=== PATIENT | male | born 1965 | race Caucasian/White ===

== ENCOUNTER 2018-05-27 16:08 | Observation (INO) ==
[2018-05-27] MEDS ORDERED: Acetaminophen 325 MG Tablet PO PRN (22:11)
[2018-05-27] MEDS ORDERED: Bisacodyl 10 MG Supp RECTAL PRN (22:11)
[2018-05-28] MEDS: Sod Chloride 0.9% Inj 1,000 ML IV.CONT SCH ×2 (01:42→14:09)
[2018-05-28] MEDS ORDERED: Gadobutrol PF 7.5 MMOL/7.5 ML Vial (for RAD) IV.SIG ONE (09:52)
--- NOTE | 2018-05-28 10:12 | MR ---
EXAM DATE: 05/28/2018 10:07 AM EDT AGE/SEX: 52 years / Male INDICATIONS: Altered mental status. Memory loss for one day. CLINICAL DATA: This is the patient's initial encounter. Patient reports that signs and symptoms have been present for 1 day and indicates a pain score of 0/10. MEDICAL/SURGICAL HISTORY: Hypertension. None. COMPARISON: DL, CT HEAD W/O CONTRAST, 05/27/2018. . TECHNIQUE: Multiplanar, multisequence examination of the brain was performed without and with 7.5 ml Gadavist (gadobutrol) contrast as a single exam dose. FINDINGS: Cerebrum: The ventricles are normal for age. No evidence of midline shift, mass lesion, hemorrhage or acute infarction. No extraaxial fluid collections are seen. The pituitary gland and suprasellar cistern are normal in configuration. White Matter: No significant signal abnormalities are seen in the white matter. Posterior Fossa: The cerebellum and brainstem are intact. The 4th ventricle is midline. The cerebel lopontine angle is unremarkable. The cerebellar tonsils are normal in position. Diffusion Imaging: No focal areas of restricted diffusion are seen. No evidence of acute infarction . Extracranial: The visualized portions of the orbits are unremarkable. Mild chronic sinus disease in the base the right maxillary sinus. Post Contrast: No abnormal areas of parenchymal or dural enhancement. No evidence of blood-brain ba rrier breakdown. No enhancing mass occupying lesions. CONCLUSION: 1. Unremarkable MRI of the brain. 2. Mild chronic sinus disease in the right maxillary sinus. Electronically signed by: Eh Wyman MD 05/28/2018 10:10 AM EDT
[2018-05-28 10:24] LABS: Potassium 4.1 meq/L (3.5-5.1)
[2018-05-28 10:26] LABS: Calcium 8.4 mg/dL (8.5-10.1)
[2018-05-28 10:27] LABS: Carbon Dioxide 28.1 meq/L (21.0-32.0); Magnesium 2.4 mg/dL (1.5-2.5)
[2018-05-28 10:30] LABS: Phosphorus 2.6 mg/dL (2.5-4.9)
--- NOTE | 2018-05-28 12:02 | P.HP ---
History of Present Illness Primary Care Physician: Flavio Carnes Chief Complaint: Altered mental status History of Present Illness: This is a 52-year-old male with history of hypertension, hyperlipidemia and vitamin D deficiency. Family history of CVA. Patient was brought in by his because of altered mental status. Apparently he is not able to recall events for the past 2 days. He denies fever, chills, neck pain, UTI symptoms, abdominal pain, diarrhea and skin rash. Not on any new medications. Patient snores but denies noticing apnea. He denies daytime drowsiness. Workup so far unremarkable except for slightly elevated ammonia level denies liver disease. At this time, he is awake and oriented. Denies any complaints. Review of Systems All other systems reviewed negative except as stated in HPI [facility] - History History Provided By: Patient, Significant Other - Medical History Medical History: Medical History (Last Reviewed 05/28/18 @ 07:40 by Eric Cooley) High cholesterol - Surgical History Surgical History: Surgical History (Last Reviewed 05/28/18 @ 07:40 by Eric Cooley) No history of previous surgery - Family History Family History: Family History (Last Updated 05/28/18 @ 01:55 by Beverly Mendez RN) Father Ischemic stroke - Tobacco History Second Hand Smoke Exposure: No Smoking Status: Never smoker - Alcohol History How Often Do You Have a Drink Containing Alcohol: Never - Substance Use History Substance History: No History of Abuse - Travel History Recent Travel in the [place] Within the Last 8 Weeks: No Recent Travel Out of the Country Within the Last 8 Weeks: No Medications and Allergies Active Medications: Active Medications Acetaminophen (Tylenol) 650 mg PO Q4H PRN PRN Reason: Temp > 100.4 Al Hydroxide/Mg Hydroxide (Milk Of Magnesia Liq) 30 ml PO Q12H PRN PRN Reason: Mild Constipation Bisacodyl (Dulcolax Supp) 10 mg RECTAL DAILY PRN PRN Reason: SEVERE CONSITIPATION Sodium Chloride (Ns Inj) 1,000 mls @ 100 mls/hr IV.CONT .Q10H [facility] Last Admin: 05/28/18 01:42 Dose: 100 mls/hr Lactulose (Lactulose Liq) 30 ml PO DAILY [facility] Last Admin: 05/28/18 08:24 Dose: 30 ml Lactulose (Lactulose Liq) 30 ml PO DAILY PRN PRN Reason: SEVERE CONSITIPATION Ondansetron HCl (Zofran Inj) 4 mg IV.PUSH Q6H PRN PRN Reason: NAUSEA OR VOMITING Sennosides (Senokot) 17.2 mg PO Q12H PRN PRN Reason: Moderate Constipation Allergies Allergy/AdvReac Type Severity Reaction Status Date / Time No Known Allergies Allergy Unverified 05/27/18 16:19 Home Medications Medication Instructions Recorded Confirmed Type atorvastatin [Lipitor] 40 mg PO DAILY 05/27/18 05/28/18 History Vitamin D3 1 PO DAILY 05/28/18 History amlodipine [Norvasc] 2.5 mg PO DAILY 05/28/18 05/28/18 History Exam Vital signs: Vital Signs 05/28/18 01:30 05/28/18 01:56 05/28/18 04:00 Temperature 97.7 F 96.6 F L Pulse Rate 68 63 77 Respiratory Rate 20 20 Blood Pressure 137/84 130/73 Pulse Oximetry 97 98 05/28/18 07:44 05/28/18 08:00 05/28/18 08:19 Temperature 97.4 F L 97.4 F L Pulse Rate 72 72 Respiratory Rate 20 20 Blood Pressure 124/72 124/68 Pulse Oximetry 95 95 97 Intake & Output 05/27/18 05/28/18 05/28/18 18:59 06:59 18:59 Intake Total 360 / 360 Balance 360 / 360 Weight 76.3 kg Intake: Oral 360 / 360 Other: # Voids 0 Date of Last Bowel Movement 05/27/18 Weight On Admission 76.3 kg Narrative: GENERAL: Well-developed, well-nourished in no distress SKIN: Warm and dry. HEAD: Atraumatic. Normocephalic. EYES: Pupils equal and round. No scleral icterus. No injection or drainage. ENT: No nasal bleeding or discharge. Mucous membranes pink and moist. NECK: Trachea midline. No JVD. CARDIOVASCULAR: Regular rate and rhythm. RESPIRATORY: No accessory muscle use. Clear to auscultation. Breath sounds equal bilaterally. GASTROINTESTINAL: Abdomen soft, non-tender, nondistended. MUSCULOSKELETAL: Extremities without clubbing, cyanosis, or edema. No obvious deformities. NEUROLOGICAL: Awake and alert. No obvious cranial nerve deficits. Motor grossly within normal limits. Five out of 5 muscle strength in the arms and legs. Normal speech. PSYCHIATRIC: Appropriate mood and affect; insight and judgment normal. Results - Labs CBC & Chem 7: 05/28/18 08:40 Labs: Laboratory Results - last 24 hr 05/28/18 08:40 Sodium 141 Potassium 4.1 Chloride 105 Carbon Dioxide 28.1 Anion Gap 8 BUN 14 Creatinine 1.30 Estimated GFR 58 L Random Glucose 109 H Calcium 8.4 L Phosphorus 2.6 Magnesium 2.4 - Imaging Impressions Head MRI 05/28/18 00:00 CONCLUSION: 1. Unremarkable MRI of the brain. 2. Mild chronic sinus disease in the right maxillary sinus. Caprini VTE Risk Assessment Caprini VTE Risk Assessment: No/Low Risk (score <= 1) Caprini Risk Assessment Model: Point Value = 1 Point Value = 2 Point Value = 3 Point Value = 5 Age 41-60 Minor surgery BMI > 25 kg/m2 Swollen legs Varicose veins or History of unexplained or recurrent spontaneous Oral contraceptives or hormone replacement Sepsis (< 1 month) Serious lung disease, including pneumonia (< 1 month) Abnormal pulmonary function Acute myocardial infarction Congestive heart failure (< 1 month) History of inflammatory bowel disease Medical patient at bed rest Age 61-74 Arthroscopic surgery Major open surgery (> 45 min) Laparoscopic surgery (> 45 min) Malignancy Confined to bed (> 72 hours) Immobilizing plaster cast Central venous access Age >= 75 History of VTE Family history of VTE Factor V Leiden Prothrombin [id number] Lupus anticoagulant Anticardiolipin antibodies Elevated serum homocysteine Heparin-induced thrombocytopenia Other congenital or acquired thrombophilia Stroke (< 1 month) Elective arthroplasty Hip, pelvis, or leg fracture Acute spinal cord injury (< 1 month) Prophylaxis Regimen: Total Risk Factor Score Risk Level Prophylaxis Regimen 0-1 Low Early ambulation 2 Moderate Order ONE of the following: *Sequential Compression Device (SCD) *Heparin 5000 units SQ BID 3-4 Higher Order ONE of the following medications: *Heparin 5000 units SQ TID *Enoxaparin/Lovenox 40 mg SQ daily (WT < 150 kg, CrCl > 30 mL/min) *Enoxaparin/Lovenox 30 mg SQ daily (WT < 150 kg, CrCl > 10-29 mL/min) *Enoxaparin/Lovenox 30 mg SQ BID (WT < 150 kg, CrCl > 30 mL/min) AND/OR *Sequential Compression Device (SCD) 5 or more Highest Order ONE of the following medications: *Heparin 5000 units SQ TID (Preferred with Epidurals) *Enoxaparin/Lovenox 40 mg SQ daily (WT < 150 kg, CrCl > 30 mL/min) *Enoxaparin/Lovenox 30 mg SQ daily (WT < 150 kg, CrCl > 10-29 mL/min) *Enoxaparin/Lovenox 30 mg SQ BID (WT < 150 kg, CrCl > 30 mL/min) AND *Sequential Compression Device (SCD) Assessment and Plan - Plan This is a 52-year-old male with history of hypertension, hyperlipidemia and vitamin D deficiency. He presented to the emergency department with altered mental status unable to recall events for the past 48 hours. Encephalopathy which is currently resolved. Etiology not clear but has slightly elevated ammonia level. EEG is pending as well as neurology consult. Elevated ammonia level. LFTs within normal limits. Drinks alcohol occasionally. Obtain ultrasound of the liver. Continue lactulose Mild hyperglycemia. Outpatient follow-up DVT prophylaxis with SCD Discharge Planning: Discharge patient to home pending EEG and neurology evaluation Condition on discharge: Improved Regular Diet as tolerated Ad Tiesha activity no driving Rx written: Lactulose Follow-up with primary care physician and neurology
[2018-05-28] MEDS: amLODIPine 5 MG Tablet PO SCH (14:07)
--- NOTE | 2018-05-29 | MG ---
cc: Rick Spivey MD ELECTROENCEPHALOGRAM RECORD NUMBER: [id number] Well-formed alpha activity 8-10 Hz, 20-50 microvolts, low-amplitude beta in the frontal channels. Good anterior to posterior gradient. Good driving with photic stimulation. No lateralizing features. Single lead EKG shows sinus rhythm, possible bundle branch block. INTERPRETATION: Normal awake electroencephalogram. Clinical correlation. Rick Spivey MD MG/sv , 09:57 PM , 10:02 PM
[2018-05-29] MEDS: Sod Chloride 0.9% Inj 1,000 ML IV.CONT SCH ×2 (00:09→06:32)
--- NOTE | 2018-05-29 04:58 | MB ---
cc: Timmy Graves MD, PhD DATE: 05/28/2018 REASON FOR CONSULTATION: Mental status change. HISTORY OF PRESENT ILLNESS: This is a very pleasant 52-year-old man who was previously healthy. His brought him to the hospital after yesterday he had an episode during the day of amnesia. This lasted pretty much the entire day. He had no recall of events during the entire day or even the day before. He would often repeat things, was very confused and disoriented. His symptoms have since subsided. They came on suddenly and resolved suddenly. No headache. No focal deficits. PAST MEDICAL HISTORY: Otherwise unremarkable except for hypercholesterolemia. MEDICINES AT HOME: NONE. SOCIAL HISTORY: He denies alcohol use. PHYSICAL EXAMINATION: VITAL SIGNS: Blood pressure 138/81, pulse 72, respirations 16, temperature 97 degrees. NEUROLOGIC: Higher cortical functions at this time are normal. Cranial nerves intact. Motor exam: No focal deficits. Brain MRI is within normal limits. EEG is pending. LABORATORY DATA: The white count is 9900, hemoglobin 16.6, hematocrit 48%, platelet count 274,000. Sodium 141, potassium 4.1, chloride 105, CO2 is 28, BUN is 14, creatinine 1.3, GFR is 58. AST 16, ALT is 38, total bilirubin 0.9, ammonia 34, alkaline phosphatase 116. IMPRESSION: Transient global amnesia. Differential would include transient ischemic attack or focal seizure. RECOMMENDATIONS: The patient will review the EEG when available. I also recommend echocardiogram and carotid ultrasound. Start aspirin 81 mg daily. Consider KIERSTEN if the echo is normal. Also, check labs to rule out hypercoagulable state. Timmy Graves MD, PhD ADAN/rm , 10:37 PM , 10:42 PM
--- NOTE | 2018-05-29 09:15 | US ---
EXAM DATE: 05/29/2018 9:09 AM EDT AGE/SEX: 52 years / Male INDICATIONS: Transient ischemic attack. CLINICAL DATA: This is the patient's initial encounter. Patient reports that signs and symptoms have been present for 1 day and indicates a pain score of 0/10. MEDICAL/SURGICAL HISTORY: Hypertension. Hyperlipidemia. Vitamin D deficiency. None. wnl COMPARISON: No prior exams available for comparison. VELOCITY PARAMETERS: ICA/CCA Ratio: Right 0.9 , Left 0.9 ICA: Right 72 cm/sec, Left 74 cm/sec CCA: Right 77 cm/sec, Left 80 cm/sec ECA: Right 81 cm/sec, Left 68 cm/sec Vertebral: Right 36 cm/sec antegrade, Left 44 cm/sec antegrade FINDINGS: Right Carotid: No significant plaque is visualized.The waveforms are within normal limits. Left Carotid: No significant plaque is visualized. The waveforms are within normal limits. Other: None. CONCLUSION: Negative for hemodynamically significant stenosis. Electronically signed by: Velasquez Garcia MD 05/29/2018 9:14 AM EDT
--- NOTE | 2018-05-29 09:17 | US ---
EXAM DATE: 05/29/2018 9:07 AM EDT AGE/SEX: 52 years / Male INDICATIONS: Mass. CLINICAL DATA: This is the patient's initial encounter. Patient reports that signs and symptoms have been present for 1 day and indicates a pain score of 0/10. MEDICAL/SURGICAL HISTORY: Hypertension. Hyperlipidemia. Vitamin D deficiency. None. COMPARISON: No prior exams available for comparison. MEASUREMENTS: Liver:__ 16.6 cm. Common Bile Duct:__ 4mm. Right Kidney:__ 9.8 x 5.0 x 4.1 cm. FINDINGS: Liver: 5 mm cyst left lobe of the liver. No duct dilatation. Portal Vein: Hepatopedal flow seen in portal vein. Common Duct: No intraluminal mass or stone visualized. Gallbladder: Demonstrates no wall thickening or pericholecystic fluid. No stones visualized. Pancreas: The visualized portions are within normal limits Right Kidney: Normal echotexture and cortical thickness. No mass or hydronephrosis. Other: No ascites CONCLUSION: 1. 5 mm cyst left lobe otherwise negative. Electronically signed by: Velasquez Garcia MD 05/29/2018 9:16 AM EDT
[2018-05-29] MEDS: amLODIPine 5 MG Tablet PO SCH (09:47)
[2018-05-29 10:38] LABS: Chol/HDL Ratio 3.99 Ratio; HDL Cholesterol 43.8 mg/dL (40.0-60.0)
--- NOTE | 2018-05-29 11:06 | ECHRPT ---
Indication: CVA/TIA CONCLUSIONS The left ventricular systolic function is normal with an estimated ejection fraction in the range of 60-65%. Normal left ventricular size. Wall thickness is upper normal. No regional wall motion abnormalities are present. Mild mitral valve regurgitation. There is trace tricuspid valve regurgitation. Normal estimated pulmonary pressures. Minimal aortic leaflet sclerosis. BP: / HR: Rhythm: Atrial fibrillation Technical Quality:Excellent FINDINGS LEFT VENTRICLE The left ventricular systolic function is normal with an estimated ejection fraction in the range of 60-65%. Normal left ventricular size. Wall thickness is normal. No regional wall motion abnormalities are present. RIGHT VENTRICLE Normal right ventricular size and systolic function. LEFT ATRIUM The left atrial size is normal. RIGHT ATRIUM The right atrial size is normal. ATRIAL SEPTUM Normal atrial septal thickness without atrial level shunting by limited color doppler interrogation. AORTA The aortic root and proximal ascending aorta are normal in size on limited imaging. MITRAL VALVE Structurally normal mitral valve. Mild mitral valve regurgitation. AORTIC VALVE Trileaflet aortic valve. No aortic valve stenosis or regurgitation. Minimal aortic leaflet sclerosi s. TRICUSPID VALVE Structurally normal tricuspid valve. There is trace tricuspid valve regurgitation. Normal estimated pulmonary pressures. PULMONARY VALVE The pulmonary valve is not well visualized. VESSELS The inferior vena cava is normal in size. PERICARDIUM No pericardial effusion. Rene Goldman MD (Electronically Signed) Final Date:29 May 2018 11:05
--- NOTE | 2018-05-29 13:31 | P.PN ---
Subjective Interval history: Follow-up TIA. Patient has no new complaints. Agrees to proceed with KIERSTEN. Educated with respect to risk factor modifications. Physical Exam Vital signs: Vital Signs 05/28/18 16:00 05/28/18 19:30 05/28/18 20:00 Temperature 98.1 F 97.4 F L Pulse Rate 72 72 Respiratory Rate 18 16 Blood Pressure 132/74 138/81 Pulse Oximetry 97 97 98 05/28/18 20:45 05/29/18 00:00 05/29/18 04:00 Temperature 97.4 F L 98.4 F Pulse Rate 77 67 89 Respiratory Rate 16 16 Blood Pressure 142/82 H 138/80 Pulse Oximetry 98 98 05/29/18 08:00 05/29/18 09:18 Temperature 97.4 F L Pulse Rate 65 Respiratory Rate 18 Blood Pressure 118/68 Pulse Oximetry 97 98 Intake & Output 05/28/18 05/29/18 05/29/18 18:59 06:59 18:59 Intake Total 1300 / 1300 1000 / 1000 1000 / 1000 Balance 1300 / 1300 1000 / 1000 1000 / 1000 Weight 77.1 kg Intake: IV 1000 / 1000 1000 / 1000 1000 / 1000 NS Inj 1,000 ML @ 100 mls/hr IV 1000 / 1000 1000 / 1000 1000 / 1000 .CONT .Q10H [facility] Rx#:[id number] Oral 300 / 300 Other: # Voids 2 3 Date of Last Bowel Movement 05/27/18 Narrative: GENERAL: Well-developed, well-nourished in no distress SKIN: Warm and dry. CARDIOVASCULAR: Regular rate and rhythm. RESPIRATORY: No accessory muscle use. Clear to auscultation. Breath sounds equal bilaterally. GASTROINTESTINAL: Abdomen soft, non-tender, nondistended. MUSCULOSKELETAL: Extremities without clubbing, cyanosis, or edema. No obvious deformities. NEUROLOGICAL: Awake and alert. No obvious cranial nerve deficits. Motor grossly within normal limits. Five out of 5 muscle strength in the arms and legs. Normal speech. Results - Labs CBC & Chem 7: 05/28/18 08:40 Laboratory Results - last 24 hr 05/29/18 05:50 Triglycerides 124 Cholesterol 175 LDL Cholesterol, Calc 106 H HDL Cholesterol 43.8 Cholesterol/HDL Ratio 3.99 - Imaging Impressions Carotid Doppler Study 05/29/18 00:00 CONCLUSION: Negative for hemodynamically significant stenosis. Liver Ultrasound 05/29/18 00:00 CONCLUSION: 1. 5 mm cyst left lobe otherwise negative. Assessment and Plan - Plan This is a 52-year-old male with history of hypertension, hyperlipidemia and vitamin D deficiency. He presented to the emergency department with altered mental status unable to recall events for the past 48 hours. Likely TIA. Carotid ultrasound, echocardiogram and MRI unremarkable. KIERSTEN negative for seizure. LDL 106 patient states he does increase his Lipitor to 40 g daily. A1c is pending. Patient agrees to undergo KIERSTEN as recommended by neurology. Follow-up hypercoagulable panel. Patient aware not to drive at this time. Outpatient follow-up with for cognitive rehab. Elevated ammonia level. LFTs within normal limits. Drinks alcohol occasionally. Ultrasound the liver shows cyst. Continue lactulose Mild hyperglycemia. Outpatient follow-up DVT prophylaxis with SCD Discharge Planning: Discharge patient to home pending EEG and neurology evaluation Condition on discharge: Improved Regular Diet as tolerated Ad Tiesha activity no driving Rx written: Lactulose Follow-up with primary care physician and neurology
[2018-05-29 17:23] LABS: Hemoglobin A1c 5.1 % (4.3-6.0)
--- NOTE | 2018-05-29 20:30 | P.PNNEU ---
Subjective Active Medications: Active Medications Acetaminophen (Tylenol) 650 mg PO Q4H PRN PRN Reason: Temp > 100.4 Al Hydroxide/Mg Hydroxide (Milk Of Magnesia Liq) 30 ml PO Q12H PRN PRN Reason: Mild Constipation Amlodipine Besylate (Norvasc) 2.5 mg PO DAILY [facility] Last Admin: 05/29/18 09:47 Dose: 2.5 mg Aspirin (Aspirin Chew) 81 mg PO DAILY [facility] Last Admin: 05/29/18 09:47 Dose: 81 mg Atorvastatin Calcium (Lipitor) 40 mg PO DAILY [facility] Last Admin: 05/29/18 15:53 Dose: 40 mg Bisacodyl (Dulcolax Supp) 10 mg RECTAL DAILY PRN PRN Reason: SEVERE CONSITIPATION Lactulose (Lactulose Liq) 30 ml PO DAILY [facility] Last Admin: 05/29/18 09:47 Dose: 30 ml Lactulose (Lactulose Liq) 30 ml PO DAILY PRN PRN Reason: SEVERE CONSITIPATION Miscellaneous (Pill Splitter) 1 each OTHER UNSCH PRN PRN Reason: SEE LABEL COMMENTS Ondansetron HCl (Zofran Inj) 4 mg IV.PUSH Q6H PRN PRN Reason: NAUSEA OR VOMITING Sennosides (Senokot) 17.2 mg PO Q12H PRN PRN Reason: Moderate Constipation Allergies/Adverse Reactions: Allergies Allergy/AdvReac Type Severity Reaction Status Date / Time No Known Allergies Allergy Unverified 05/27/18 16:19 Physical Exam Vital signs: Vital Signs 05/28/18 20:45 05/29/18 00:00 05/29/18 04:00 Temperature 97.4 F L 98.4 F Pulse Rate 77 67 89 Respiratory Rate 16 16 Blood Pressure 142/82 H 138/80 Pulse Oximetry 98 98 05/29/18 08:00 05/29/18 09:18 05/29/18 12:00 Temperature 97.4 F L 97.0 F L Pulse Rate 65 75 Respiratory Rate 18 18 Blood Pressure 118/68 121/72 Pulse Oximetry 97 98 99 05/29/18 15:48 05/29/18 20:05 Temperature 96.7 F L Pulse Rate 73 Respiratory Rate 18 Blood Pressure 137/79 Pulse Oximetry 99 98 Intake & Output 05/29/18 05/29/18 05/30/18 06:59 18:59 06:59 Intake Total 1000 / 1000 1000 / 1000 Balance 1000 / 1000 1000 / 1000 Weight 77.1 kg Intake: IV 1000 / 1000 1000 / 1000 NS Inj 1,000 ML @ 100 mls/hr IV 1000 / 1000 1000 / 1000 .CONT .Q10H [facility] Rx#:[id number] Other: # Voids 3 Date of Last Bowel Movement 05/27/18 Objective Radiology Results: carotid US normal ECHO normal EEG normal MRI brain normal Laboratory Results - last 24 hr 05/29/18 05/29/18 05:50 05:50 Hemoglobin A1c 5.1 Triglycerides 124 Cholesterol 175 LDL Cholesterol, Calc 106 H HDL Cholesterol 43.8 Cholesterol/HDL Ratio 3.99 Review/Management - Diagnosis (1) TIA (transient ischemic attack) Code(s): G45.9 - Transient cerebral ischemic attack, unspecified Status: Acute Current Visit: Yes - Review/Management Plan: episode of transient global amnesia--suspect TIA. Recommend KIERSTEN to r/o pfo
[2018-05-30 05:25] VITALS: RESP 16
[2018-05-30 08:22] VITALS: BP 120/73; PULSE 64; TEMP 96.4; O2SAT 97
--- NOTE | 2018-05-30 08:23 | MB ---
cc: Rene Goldman MD DATE: 05/28/2018 REASON FOR CONSULTATION: Transesophageal echocardiography. HISTORY OF PRESENT ILLNESS: The patient is a 52-year-old with a history of hypertension and hyperlipidemia, who was brought to the hospital due to altered mental status. The patient was unable to recall any other events for the previous 48 hours prior to presentation. He denies chest pain, shortness of breath, dizziness, syncope, near syncope, palpitations, pedal edema. The patient plays vigorous soccer at least twice a week. The patient also reports a stress test about 2 years ago, which was negative for ischemia. Echocardiogram here in the hospital is unremarkable. PAST MEDICAL HISTORY: 1. Hypertension. 2. Hyperlipidemia. PAST SURGICAL HISTORY: None. CARDIAC MEDICATIONS AT HOME: 1. Amlodipine 2.5 mg daily. 2. Atorvastatin 40 mg at bedtime. ALLERGIES: NO KNOWN DRUG ALLERGIES. FAMILY HISTORY: The patient states his father may started having cardiac issues in his 60s, possibly myocardial infarction, subsequently passing away from an ischemic stroke. SOCIAL HISTORY: The patient denies any history of alcohol or tobacco abuse. REVIEW OF SYSTEMS: As in history of present illness, otherwise negative or noncontributory. He also denies headache, unilateral weakness or numbness, abdominal pain, melena, dyspepsia, bright red blood per rectum. PHYSICAL EXAMINATION: VITAL SIGNS: Blood pressure 137/79 with a pulse of 73, respirations 18. GENERAL: He is a well-developed, well-nourished male, in no acute distress. NECK: Jugular venous pressure is normal. Carotid pulses are 2+ bilaterally and without bruits. CHEST: Reveals clear lungs george. CARDIAC: He has a regular rhythm and rate without S3, S4, or murmur. ABDOMEN: He has a soft, nontender abdomen. Bowel sounds are present. There is no definite hepatosplenomegaly. EXTREMITIES: Reveals no clubbing, cyanosis or edema. LABORATORY DATA: Includes potassium 4.1, BUN 14, creatinine 1.30. Triglycerides 124, total cholesterol 175, LDL 106, HDL 44. IMPRESSION: Possible episode of transient global amnesia or transient ischemic attack in this 52-year-old male with a history of hypertension, hyperlipidemia. I have been asked to see the patient for transesophageal echocardiography. Overall, I would agree with the need for this exam. The patient has no cardiovascular symptoms. The patient reports a cardiac evaluation in the past, which has been normal. Transthoracic echocardiography here in the hospital is unremarkable. RECOMMENDATIONS: Transesophageal echocardiography. As the test cannot be done until Mass[place] morning, he is cleared for discharge from my standpoint, and he can followup with his incising machine operator, Dr. Avina, to set this study up as an outpatient. MD DOMINGA Mendez/satya , 07:47 PM , 07:56 PM [id number]
[2018-05-30] MEDS: amLODIPine 5 MG Tablet PO SCH (08:47)
--- NOTE | 2018-05-30 12:37 | P.DS ---
Date of admission: 05/28/18 01:20 Primary care physician: Flavio Carnes Brief History from admission: This is a 52-year-old male with history of hypertension, hyperlipidemia and vitamin D deficiency. Family history of CVA. Patient was brought in by his because of altered mental status. Apparently he is not able to recall events for the past 2 days. He denies fever, chills, neck pain, UTI symptoms, abdominal pain, diarrhea and skin rash. Not on any new medications. Patient snores but denies noticing apnea. He denies daytime drowsiness. Workup so far unremarkable except for slightly elevated ammonia level denies liver disease. At this time, he is awake and oriented. Denies any complaints. DS: Medications - Discharge Medications Prescriptions: aspirin 81 mg PO DAILY #30 tab lactulose 30 ml PO DAILY #1000 ml DS: Summary Hospital Course: This is a 52-year-old male with history of hypertension, hyperlipidemia and vitamin D deficiency. He presented to the emergency department with altered mental status unable to recall events for the past 48 hours. Likely TIA. Carotid ultrasound, echocardiogram and MRI unremarkable. KIERSTEN negative for seizure. LDL 106 patient states he just increased his Lipitor to 40 g daily. A1c is 5.3. Patient agrees to undergo KIERSTEN as recommended by neurology but unable to arrange until Friday, he has been cleared by cardiology to follow-up with his own case folder for KIERSTEN patient agrees to be discharged fully aware of risks not completing KIERSTEN at this time. Follow-up hypercoagulable panel. Patient aware not to drive at this time or participate in any activities requiring concentration. Outpatient follow-up with for cognitive rehab. Elevated ammonia level. LFTs within normal limits. Drinks alcohol occasionally. Ultrasound the liver shows cyst. Continue lactulose DVT prophylaxis with SCD - Time Spent with Patient Total time spent providing and/or coordinating discharge services: Greater than 30 minutes - Quality: VTE Deep Vein Thrombosis/Pulmonary Embolism Present on Admission: No Exam Vital signs: Vital Signs 05/29/18 15:48 05/29/18 20:00 05/29/18 20:05 Temperature 96.7 F L 97.4 F L Pulse Rate 73 62 Respiratory Rate 18 16 Blood Pressure 137/79 131/85 Pulse Oximetry 99 96 98 05/30/18 00:00 05/30/18 04:00 05/30/18 08:00 Temperature 98.5 F 97.4 F L 96.4 F L Pulse Rate 90 70 64 Respiratory Rate 18 16 16 Blood Pressure 130/72 122/77 120/73 Pulse Oximetry 100 99 97 Intake & Output 05/29/18 05/30/18 05/30/18 18:59 06:59 18:59 Intake Total 1000 / 1000 Balance 1000 / 1000 Weight 77 kg Intake: IV 1000 / 1000 NS Inj 1,000 ML @ 100 mls/hr IV 1000 / 1000 .CONT .Q10H ERIC Rx#:[id number] Other: # Voids 3 Date of Last Bowel Movement 05/28/18 05/28/18 Narrative: GENERAL: Well-developed, well-nourished in no distress SKIN: Warm and dry. CARDIOVASCULAR: Regular rate and rhythm. RESPIRATORY: No accessory muscle use. Clear to auscultation. Breath sounds equal bilaterally. GASTROINTESTINAL: Abdomen soft, non-tender, nondistended. MUSCULOSKELETAL: Extremities without clubbing, cyanosis, or edema. No obvious deformities. NEUROLOGICAL: Awake and alert. No obvious cranial nerve deficits. Motor grossly within normal limits. Five out of 5 muscle strength in the arms and legs. Normal speech. Results Procedures completed during hospitalization: none Labs on day of discharge: Labs from last 24 hours 05/29/18 05:50 Hemoglobin A1c 5.1 - Impressions ITS Impressions Head MRI 05/28/18 00:00 CONCLUSION: 1. Unremarkable MRI of the brain. 2. Mild chronic sinus disease in the right maxillary sinus. Carotid Doppler Study 05/29/18 00:00 CONCLUSION: Negative for hemodynamically significant stenosis. Liver Ultrasound 05/29/18 00:00 CONCLUSION: 1. 5 mm cyst left lobe otherwise negative. Discharge Plan - Discharge Disposition Patient Disposition: Discharge Home - Discharge Condition Condition: Stable - Discharge Order Discharge Orders: Discharge Order (Routine); Ordered 05/30/18 Ordered By: Vijay Hyde Cardiology Clear for Discharge (Routine); Ordered 05/29/18 Ordered By: Rene Abdi - Physicians Team Primary Care Provider: Flavio Carnes Attending Provider: Vijay Hyde Other Providers: Timmy Graves MD, PhD ; Rene Abdi MD - Rxs /Orders / Referrals /Forms Prescriptions: New aspirin 81 mg Tablet,Chewable 81 mg PO DAILY Qty: 30 RF: 0 lactulose 20 gram/30 mL Solution 30 ml PO DAILY Qty: 1000 RF: 0 Continue amlodipine [Norvasc] 2.5 mg Tablet 2.5 mg PO DAILY atorvastatin [Lipitor] 40 mg Tablet 40 mg PO DAILY Vitamin D3 1000 mg tablet 1 PO DAILY Ambulatory Orders / Order Sets / DME: Basic Metabolic Panel (Routine) Timeframe: [id number] Location: Determined by Patient Ordered By: Vijay Hyde Referrals: [facility] [Outside] - 06/01/18 (Dr Avina for KIERSTEN) Flavio Carnes [Primary Care Provider] - See Instructions (1wk) Timmy Graves MD, PhD [Physician] - See Instructions (1wk) - Discharge Instructions Patient Printed Instructions: Altered Mental Status (GEN) Additional Instructions: FOLLOW-UP DR. ABDI OFFICE AN OUT PATIENT FOR KIERSTEN. - Post Discharge Care Plan Care Plan Goals: Your Health Problems: Goals to Promote Your Health: * To prevent worsening of your condition * To maintain your health at the optimal level Directions to Meet Your Goals: * Take your medications as prescribed * Follow your dietary instruction * Follow activity as directed * Keep your appointments as scheduled * Take your immunizations and boosters as scheduled * If your symptoms worsen call your PCP * If no PCP go to Urgent Care or Emergency Room Smoking is dangerous to your health. Avoid second hand smoke. You may reach the 24-hour crisis hotline for domestic abuse at .
[2018-05-31 23:52] LABS: Dil Russell Viper Venom Conf ( ND (NEGATIVE); Dil Russell Viper Venom Time M ND (CORRECTED); Lupus Anticoagulant PTT Screen 36 seconds (< OR = 40)
[2018-06-01 21:06] LABS: Factor V Leiden Mutation Negative (Negative)
[2018-06-02 16:07] LABS: Protein C Antigen 81 % (70-150); Protein S Antigen Free 125 % (65 - 160)
== END 2018-05-30 12:19 | disposition home or self-care (01) ==
LOC: PH3 05-28 01:10 → PHEDDLT 05-28 01:10
PROVIDERS: ADMIT Internal Medicine; ATTEND Internal Medicine